=== PATIENT | female | born 1955 | race Caucasian/White ===

== ENCOUNTER 2018-07-24 07:09 | Day surgery (SDC) | payer OTHER ==
[2018-07-23 14:23] VITALS: BMI 23.0
[2018-07-24] MEDS ORDERED: Lactated Ringer's 500 ML IV ONE (11:18)
[2018-07-24] MEDS ORDERED: Propofol 10 mg/ml Inj (20 ML) ONE (11:24)
[2018-07-24] MEDS ORDERED: Midazolam 2 MG/2 ML VIAL ONE (11:24)
[2018-07-24] MEDS ORDERED: Simethicone 40 mg/0.6 ml Liquid (30 ml) ONE (11:42)
[2018-07-24 13:18] VITALS: TEMP 97
[2018-07-24 13:19] VITALS: RESP 20; O2SAT 100
[2018-07-24 13:26] VITALS: BP 127/60; PULSE 65
== END 2018-07-24 13:25 | disposition home or self-care (01) ==
LOC: C.ENDO 07:09
PROVIDERS: ATTEND Internal Medicine Gastroenterology
DX: Z12.11 Encounter for screening for malignant neoplasm of colon (principal); D12.4 Benign neoplasm of descending colon; D12.5 Benign neoplasm of sigmoid colon; K57.30 Diverticulosis of large intestine without perforation or abscess without bleeding; K64.8 Other hemorrhoids
CPT/HCPCS: 45380; 82948; 88305; J2250; J2704; J7120